=== PATIENT | male | born 1945 | race Caucasian/White ===

== ENCOUNTER 2020-10-22 17:56 | Emergency (ER) | payer SELFPAY ==
[2020-10-22 18:33] LABS: HEMOGLOBIN 14.3 gm/dl (14.0-17.5); RED BLOOD COUNT 4.63 M/UL (4.20-5.50); WHITE BLOOD COUNT 9.9 K/UL (4.5-11.0)
[2020-10-22] MEDS ORDERED: CEFUROXIME500 MG PO (20:05)
[2020-10-22] MEDS ORDERED: HYDROCODON-ACE1 EAC4 PO (20:05)
== END 2020-10-22 22:39 | disposition short-term general hospital (02) ==
LOC: ER1 17:56
PROVIDERS: Preventive Medicine Occupational Medicine
DX: S01.01XA Laceration without foreign body of scalp, initial encounter (principal); S06.350A Traumatic hemorrhage of left cerebrum without loss of consciousness, initial encounter; V49.40XA Driver injured in collision with unspecified motor vehicles in traffic accident, initial encounter; Y92.410 Unspecified street and highway as the place of occurrence of the external cause
CPT/HCPCS: 12001; 70450; 71045; 72125; 72128; 72131; 72170; 85025; 99285

== ENCOUNTER 2021-02-17 11:22 | Inpatient (IN) | payer MEDICARE, MEDICAID ==
[~2021-02-17] VITALS: Ht 172.7 cm; Wt 72.6 kg
[~2021-02-17 11:22] MED LIST: CEFUROXIME500 MG PO; HYDROCODON-ACE1 EAC4 PO
[2021-02-17 12:29] LABS: HEMOGLOBIN 15.1 gm/dl (14.0-17.5); RED BLOOD COUNT 5.04 M/UL (4.20-5.50); WHITE BLOOD COUNT 5.7 K/UL (4.5-11.0)
[2021-02-17 13:12] LABS: BUN/CREATININE RATIO 15 (0-10)
[2021-02-17 21:24] LABS: BUN/CREATININE RATIO 17 (0-10)
[2021-02-18 07:34] LABS: HEMOGLOBIN 14.6 gm/dl (14.0-17.5); RED BLOOD COUNT 4.93 M/UL (4.20-5.50); WHITE BLOOD COUNT 4.9 K/UL (4.5-11.0)
--- NOTE | 2021-02-18 07:55 | NUR ---
UPON OBTAINING VITALS THIS MORNING PATIENT IS NOTED TO HAVE 02 SATS IN THE MID 80'S ON ROOM AIR.PROVIDER MADE AWARE WITH A NEW ORDER FOR CONTINUOS PULSE OX MONITORING AND TO PUT PATIENT ON 2LNC. PATIENT STABLE AT THIS TIME.
[2021-02-18 08:13] LABS: BUN/CREATININE RATIO 16 (0-10)
[2021-02-19 03:55] LABS: HEMOGLOBIN 15.2 gm/dl (14.0-17.5); RED BLOOD COUNT 5.09 M/UL (4.20-5.50)
[2021-02-19 03:56] LABS: WHITE BLOOD COUNT 7.2 K/UL (4.5-11.0)
[2021-02-19 04:22] LABS: BUN/CREATININE RATIO 17 (0-10)
[2021-02-20 05:36] LABS: HEMOGLOBIN 14.7 gm/dl (14.0-17.5); RED BLOOD COUNT 5.19 M/UL (4.20-5.50); WHITE BLOOD COUNT 9.6 K/UL (4.5-11.0)
[2021-02-20 06:01] LABS: BUN/CREATININE RATIO 16 (0-10)
[2021-02-21 06:38] LABS: HEMOGLOBIN 13.5 gm/dl (14.0-17.5); RED BLOOD COUNT 4.83 M/UL (4.20-5.50); WHITE BLOOD COUNT 12.8 K/UL (4.5-11.0)
[2021-02-21 07:12] LABS: BUN/CREATININE RATIO 27 (0-10)
[2021-02-22 06:50] LABS: BUN/CREATININE RATIO 31 (0-10)
[2021-02-23 08:15] LABS: BUN/CREATININE RATIO 32 (0-10)
[2021-02-23 08:23] LABS: HEMOGLOBIN 13.4 gm/dl (14.0-17.5); RED BLOOD COUNT 4.81 M/UL (4.20-5.50); WHITE BLOOD COUNT 14.7 K/UL (4.5-11.0)
[2021-02-24 04:48] LABS: HEMOGLOBIN 14.4 gm/dl (14.0-17.5); RED BLOOD COUNT 5.19 M/UL (4.20-5.50); WHITE BLOOD COUNT 18.2 K/UL (4.5-11.0)
[2021-02-24 05:21] LABS: BUN/CREATININE RATIO 28 (0-10)
--- NOTE | 2021-02-24 14:00 | NUR ---
PATIENT NOTED TO BE MORE FATIGUED AND CONFUSED THAN YESTERDAY. OXYGEN ABOVE 90% WITH CONTINUOUS TELE AND PULSE OX IN PLACE. PATIENT DISPLAYS NO S/SX OF PAIN OR DISTRESS. RN NOTIFIED MD OF PATIENT'S CHANGE IN CONDITION. PULMONOLOGY MD PUT IN ORDER TO TRANSPORT PATIENT TO PCU IN CASE DECLINE CONTINUES. APPRISE COUNSELOR NOTIFIED. RN CALLED REPORT TO PCU NURSE AND LATER TRANSPORTED TO PCU PER MD ORDER.
[2021-02-25 03:29] LABS: HEMOGLOBIN 13.8 gm/dl (14.0-17.5); RED BLOOD COUNT 4.83 M/UL (4.20-5.50); WHITE BLOOD COUNT 13.9 K/UL (4.5-11.0)
[2021-02-25 03:35] LABS: BUN/CREATININE RATIO 35 (0-10)
--- NOTE | 2021-02-25 19:15 | NUR ---
WHILE GIVING REPORT THE PATIENT WAS NOTED AT DIAPHORETIC AND VERY LABORED BREATHING. BLOOD GLUCOSE WAS CHECKED AND DUE TO HIM SWEATING. BLOOD SUGAR WAS GOOD. CALLED MD AND HE TOLD US TO GIVE 0.1 MG OF COREG. PT TOOK THE PILL AND PRN HYRDRALAZINE WAS GIVEN. MD SAID TO GET ABG AND PUT PATIENT ON BIPAP DUE TO RESPIRATIONS. PTS BLOOD PRESSURE WENT DOWN AFTER THE HYDRALAZINE WAS GIVEN. MD WAS NOTIFIED AND CAME TO SEE THE PATIENT.
[2021-02-26 08:56] LABS: RED BLOOD COUNT 5.83 M/UL (4.20-5.50); WHITE BLOOD COUNT 22.8 K/UL (4.5-11.0)
[2021-02-26 08:57] LABS: HEMOGLOBIN 16.3 gm/dl (14.0-17.5)
--- NOTE | 2021-02-26 14:35 | NUR ---
[id number] -- DR. NGUYEN NOTIFIED ABOUT PT DECLINING CONDITION STATUS, DIAPHORETIC, UNRESPONSIVE. DR. NGUYEN ADVISED TO CALL DR. SILVA AND NOTIFY OF STATUS. - [phone]-- DR. SILVA NOTIFIED OF PATIENTS STATUS, MD INFORMED ENROUTE TO PATIENTS ROOM TO EVALUATE PENDING POSSIBLE INTUBATION.
[2021-02-26 18:11] LABS: RED BLOOD COUNT 5.65 M/UL (4.20-5.50)
[2021-02-26 18:21] LABS: WHITE BLOOD COUNT 41.7 K/UL (4.5-11.0)
[2021-02-27 05:53] LABS: HEMOGLOBIN 14.4 gm/dl (14.0-17.5)
[2021-02-27 05:55] LABS: RED BLOOD COUNT 5.06 M/UL (4.20-5.50); WHITE BLOOD COUNT 43.9 K/UL (4.5-11.0)
[2021-02-28 09:25] LABS: HEMOGLOBIN 11.8 gm/dl (14.0-17.5); RED BLOOD COUNT 4.11 M/UL (4.20-5.50); WHITE BLOOD COUNT 33.4 K/UL (4.5-11.0)
[2021-03-01 05:40] LABS: HEMOGLOBIN 10.5 gm/dl (14.0-17.5); RED BLOOD COUNT 3.7 M/UL (4.20-5.50)
[2021-03-02 05:58] LABS: HEMOGLOBIN 9.3 gm/dl (14.0-17.5); WHITE BLOOD COUNT 24.5 K/UL (4.5-11.0)
[2021-03-02 06:00] LABS: RED BLOOD COUNT 3.23 M/UL (4.20-5.50)
[2021-03-02 12:13] LABS: HBSAG SCREEN Negative (Negative); HEP A AB, IGM Negative (Negative); HEP B CORE AB, IGM Negative (Negative); HEP C VIRUS AB <0.1 (0.0-0.9)
[2021-03-03 05:52] LABS: HEMOGLOBIN 9.9 gm/dl (14.0-17.5); RED BLOOD COUNT 3.32 M/UL (4.20-5.50)
[2021-03-03 05:55] LABS: WHITE BLOOD COUNT 48.9 K/UL (4.5-11.0)
[2021-03-04 11:29] LABS: HEMOGLOBIN 9.9 gm/dl (14.0-17.5); RED BLOOD COUNT 3.09 M/UL (4.20-5.50)
[2021-03-04 11:58] LABS: WHITE BLOOD COUNT 50.1 K/UL (4.5-11.0)
== END 2021-03-05 01:12 | disposition expired | DRG 870 ==
LOC: ER1 11:22 → MED SURG 4 15:41 → CDU 15:41 → MED SURG 4 15:41 → CCU 02-19 08:54 → MED SURG 4 02-19 08:54 → PROG CARE 02-24 17:34 → CCU 02-26 13:56
PROVIDERS: Internal Medicine; Internal Medicine Nephrology; Internal Medicine Pulmonary Disease; Nurse Practitioner; Nurse Practitioner Pediatrics; Physician Assistant; Physician Assistant Medical; Surgery; ADMIT Internal Medicine Infectious Disease
DX: A41.89 Other specified sepsis (principal); J95.811 Postprocedural pneumothorax; E11.10 Type 2 diabetes mellitus with ketoacidosis without coma; U07.1 COVID-19; J80 Acute respiratory distress syndrome; R65.21 Severe sepsis with septic shock; N17.0 Acute kidney failure with tubular necrosis; N18.6 End stage renal disease; G93.41 Metabolic encephalopathy; J12.82 Pneumonia due to coronavirus disease 2019; E87.1 Hypo-osmolality and hyponatremia; M62.82 Rhabdomyolysis; E87.2 Acidosis; I12.0 Hypertensive chronic kidney disease with stage 5 chronic kidney disease or end stage renal disease; J93.82 Other air leak; R94.5 Abnormal results of liver function studies; J98.2 Interstitial emphysema; Z66 Do not resuscitate; E11.65 Type 2 diabetes mellitus with hyperglycemia; E83.51 Hypocalcemia; E87.5 Hyperkalemia; E11.22 Type 2 diabetes mellitus with diabetic chronic kidney disease; E80.6 Other disorders of bilirubin metabolism; Y84.9 Medical procedure, unspecified as the cause of abnormal reaction of the patient, or of later complication, without mention of misadventure at the time of the procedure; D69.6 Thrombocytopenia, unspecified; E86.0 Dehydration; Z82.49 Family history of ischemic heart disease and other diseases of the circulatory system; Z79.84 Long term (current) use of oral hypoglycemic drugs; Z99.2 Dependence on renal dialysis
CPT/HCPCS: 31500; 36415; 36600; 71045; 71275; 74018; 80048; 80053; 80074; 80202; 81001; 82009; 82140; 82436; 82550; 82553; 82570; 82607; 82652; 82803; 82962; 83036; 83605; 83615; 83735; 83874; 83880; 83970; 84100; 84133; 84156; 84300; 84443; 84484; 85007; 85025; 85027; 85379; 85384; 85610; 85730; 86140; 87040; 87081; 87086; 89050; 90937; 92526; 92610; 93005; 94003; 94640; 94660; 94664; 94760; 96372; 97110-GP-CQ; 97161; 97530; 97530-GP-CQ; 99285; A6212; C1751; G0378; J0360; J0692; J1100; J1644; J1650; J1940; J2250; J2270; J2370; J2704; J3010; J3370; J7030; J7050; J7070; J7120; P9047; Q0249; Q9967; U0002